=== PATIENT | male | born 1965 | race Caucasian/White ===

== ENCOUNTER 2019-06-05 15:05 | Emergency (ER) | payer SELFPAY ==
--- NOTE | 2019-06-05 15:20 | Emergency Department Record ---
History of Present Illness - General Chief complaint: Extremity Problem Stated complaint: PAIN IN BOTH FEET Time Seen by Provider: 06/05/19 15:09 Source: Patient Mode of Arrival: Ambulatory Limitations: No limitations - History of Present Illness Initial comments: 54 yo male presents with bilateral feet pain mostly in his toes. This has been ongoing for over a year. He states he has had various injuries at different times. He denies any numbness or tingling. No history of diabetes, gout, neuropathy, PAD. He stands long hours at work. No fever, abnormal redness or coolness. He does not have a PCP. No mid foot, heel or calf pain. No cramps or pain with walking or exertion to suggest claudication. Accu Check on arrival is 76. MD Complaint: Extremity pain, Joint pain -: Year(s) Location: Bilateral -: Yes Arthralgia Radiation: Distal Quality: Aching Consistency: Constant Improves with: Nothing Worsens with: Walking, Weight bearing Associated Symptoms: Denies other symptoms - Related Data Previous Rx's Medication Instructions Recorded Albuterol Sulfate [Proair Hfa] 1 - 2 puff IH .EVERY 4-6 HOURS PRN 01/28/15 #1 inhaler Allergies Allergy/AdvReac Type Severity Reaction Status Date / Time No Known Drug Allergies Allergy Verified 06/05/19 15:13 Review of Systems Constitutional: Denies: Chills, Fever, Malaise, Weakness Eyes: Denies: Eye discharge ENT: Denies: Congestion, Throat pain Respiratory: Denies: Cough, Dyspnea Cardiovascular: Denies: Chest pain Endocrine: Denies: Fatigue Gastrointestinal: Denies: Abdominal pain, Diarrhea, Nausea, Vomiting Genitourinary: Denies: Dysuria, Frequency, Hematuria Musculoskeletal: Reports: As per HPI, Arthralgia. Denies: Back pain, Joint swelling, Myalgia, Neck pain Skin: Denies: Bruising, Change in color, Rash Neurological: Denies: Headache Psychiatric: Denies: Anxiety Hematological/Lymphatic: Denies: Easy bruising Past Medical History - SOCIAL HISTORY Smoking Status: Former smoker - RESPIRATORY Hx Respiratory Disorders: No - CARDIOVASCULAR Hx Cardio Disorders: No - NEURO Hx Neuro Disorders: No - GI Hx GI Disorders: No - Hx Genitourinary Disorders: No - ENDOCRINE Hx Endocrine Disorders: No - MUSCULOSKELETAL Hx Musculoskeletal Disorders: Yes Hx Back Injury: Yes - PSYCH Hx Psych Problems: No - HEMATOLOGY/ONCOLOGY Hx Hematology/Oncology Disorders: No Physical Exam - General General Appearance: Alert, Oriented x3, Cooperative, No acute distress Limitations: No limitations - Head Head exam: Atraumatic - Eye Eye exam: Normal appearance - ENT ENT exam: Normal exam Ear exam: Normal external inspection Nasal Exam: Normal inspection Mouth exam: Normal external inspection - Neck Neck exam: Normal inspection - Respiratory Respiratory exam: Normal lung sounds bilaterally - Cardiovascular Cardiovascular Exam: Regular rate, Normal rhythm, Normal heart sounds Peripheral Pulses: 2+: Dorsalis Pedis (R), Dorsalis Pedis (L) - Extremities Extremities exam: Full ROM, Normal capillary refill, Tenderness. negative: Calf tenderness, Joint swelling, Pedal edema Image of Feet: 1 - 5mm scab 2 - dry crack scaly 3 - abrasion - Back Back exam: Reports: Normal inspection - Neurological Neurological exam: Alert, Oriented X3. negative: Motor sensory deficit - Psychiatric Psychiatric exam: Normal affect, Normal mood. negative: Agitated, Anxious - Skin Skin exam: Other Course - Reevaluation(s) Reevaluation #1: The bilateral feet have easily palpable dorsalis pedal pulses and PT pulses No clinical history to strongly suggest claudication or acute vascular issue No history of gout or diabetes He has dry scaling to multiple toes and some chronic nail changes CR is intact, Sensation is intact, No signs of vascular insufficiency, infection, acute trauma 06/05/19 15:21 06/05/19 16:29 The XR reports were reviewed. No acute process. Healed old fractures, degenerative changes and arthritis noted. The patient was strongly encourage to call the number provided for a family doctor here at [facility]. We discussed treatment at home and reasons to return to the ED Disposition Disposition: Discharge Clinical Impression: Chronic pain of both feet Disposition: Home, Self-Care Condition: (1) Good Instructions: Arthritis (ED) Additional Instructions: Review this ER visit and the tests performed with your new family doctor Call your new doctor for the next available follow up appointment Return to the ER for a recheck immediately if worse, any new concerns or questions Referrals: DARRICK WEBBER [MEDICAL DOCTOR] - Forms: Patient Portal Access Time of Disposition: 16:31 Quality - Quality Measures Quality Measures: N/A - Blood Pressure Screening Does Patient Have Any of the Following: No Blood Pressure Classification: Pre-Hypertensive BP Reading Systolic Measurement: 134 Diastolic Measurement: 87 Screening for High Blood Pressure: < Pre-Hypertensive BP, F/U Documented > [G8950] Pre-Hypertensive Follow-up Interventions: Referral to alternative/primary care provider.
[2019-06-05] MEDS ORDERED: NAPROXEN 250 MG TABLET PO ONE (15:23)
--- NOTE | 2019-06-05 16:19 | RADIOLOGY REPORT ---
EXAMINATION: Left Foot, Minimum Three Views EXAM DATE: 06/05/2019 3:37 PM TECHNIQUE: AP, lateral, and oblique INDICATION: bilat feet pain, misc injuries over time COMPARISON: None ENCOUNTER: Initial FINDINGS: Mild joint space narrowing and slight spurring at the first MTP joint. There is a moderate-sized retr ocalcaneal spur. There is no fracture or dislocation. IMPRESSION: No acute osseous abnormality. First MTP mild arthritic change. Calcaneal spur. Dictated by: Yordan Gatica MD on 06/05/2019 4:14 PM. .
--- NOTE | 2019-06-05 16:22 | RADIOLOGY REPORT ---
EXAMINATION: Right Foot, Minimum Three Views EXAM DATE: 06/05/2019 3:38 PM TECHNIQUE: AP, lateral, and oblique INDICATION: bilat feet pain, misc injuries over time COMPARISON: None ENCOUNTER: Initial FINDINGS: Mild hallux valgus. Mild joint space narrowing and slight spurring at the first MTP joint. Small retr ocalcaneal spur. Mild tibiotalar joint spurring. Morphologic abnormalities at the level of the distal metadiaphysis of the fifth metatarsal are seen. This is nonspecific. It may relate to old healed trauma or old healed infection. An osteochondroma is not completely excluded. Abnormal contours and increased density is seen involving the base of the third toe proximal phalanx. This likely relates to an old healed comminuted fracture. There are slight contour abnormalities at the base of the little toe proximal phalanx of uncertain si gnificance. IMPRESSION: No acute osseous abnormality. See above comments. Dictated by: Yordan Gatica MD on 06/05/2019 4:17 PM. .
== END 2019-06-05 16:36 | disposition home or self-care (01) ==
LOC: ER 15:05
DX: G89.29 Other chronic pain (principal); M79.672 Pain in left foot; M79.671 Pain in right foot; Z87.891 Personal history of nicotine dependence
CPT/HCPCS: 36416; 82948; 99284